=== PATIENT | male | born 1975 | race African-American/Black ===

== ENCOUNTER 2017-02-22 18:47 | Emergency (ER) | payer OTHER ==
--- NOTE | 2017-02-22 18:51 | PDOC ---
Rapid Medical Evaluation Time Seen by Provider: 02/22/17 18:50 Medical Evaluation: Allergies Allergy/AdvReac Type Severity Reaction Status Date / Time No Known Allergies Allergy Verified 05/27/14 15:53 02/22/17 18:51 Pt presents to the ED with complaints of: white penile discharge, no fever, no abd pain On brief exam: vss Pt ordered for: ua, gc/ chlamydia Pt to proceed to the ED Discharge Disposition - Diagnosis Penile discharge - Discharge Dispostion Disposition: HOME Condition at time of disposition: Good - Referrals - Patient Instructions Printed Discharge Instructions: Facts About Sexually Transmitted Infections Additional Instructions: Discharge Instructions: -You were treated for Gonorrhea and chlamydia today. You do not need any more medication -We will call you in 3-4 days if your test results come back positive -Please refrain from sexual intercourse for 1 week -Please inform all sexual partners that you were treated and that they should be tested -Return to the ER with any worsening or concerning symptoms - Post Discharge Activity
[2017-02-22 18:55] VITALS: BP 141/94; PULSE 65; TEMP 98.7; BMI 28.2
[2017-02-22 19:23] LABS: URINE APPEARANCE CLEAR; URINE BILIRUBIN NEGATIVE (NEGATIVE); URINE BLOOD NEGATIVE (NEGATIVE); URINE COLOR YELLOW; URINE GLUCOSE (UA) NEGATIVE (NEGATIVE); URINE KETONE TRACE (NEGATIVE); URINE LEUK ESTERASE TRACE (NEGATIVE); URINE NITRITE NEGATIVE (NEGATIVE); URINE PROTEIN NEGATIVE (NEGATIVE)
[2017-02-22] MEDS ORDERED: AZITHROMYCIN 1 GM PACKET PO ONE (19:30)
[2017-02-22 19:33] LABS: EPI CELLS RARE /HPF (FEW); URINE BACTERIA RARE /hpf (NONE SEEN); URINE MUCUS FEW
--- NOTE | 2017-02-22 19:59 | PDOC ---
History of Present Illness - General Chief Complaint: Penile Drainage Stated Complaint: EVALUATION Time Seen by Provider: 02/22/17 18:50 History Source: Patient Exam Limitations: No Limitations - History of Present Illness Initial Comments: CHIEF COMPLAINT: 42 y/o male c/o penile discharge and slight burning with urination today. HISTORY OF PRESENT ILLNESS: Patient had both oral sex and protected sex last week with a new partner. He woke up with penile discharge today and would like to be treated. He denies f/c, n/v/d, rashes, testicular pain/swelling/redness. Vital signs on arrival are within normal limits. REVIEW OF SYSTEMS: GENERAL/CONSTITUTIONAL: No fever/chills. No weakness. No weight change. GENITOURINARY: +dysuria. +penile discharge. No testicular pain or swelling. MUSCULOSKELETAL: No joint or muscle swelling or pain. No neck or back pain. SKIN: No rash or easy bruising. NEUROLOGIC: No headache, vertigo, loss of consciousness, or loss of sensation. PHYSICAL EXAM: GENERAL: The patient is awake, alert, and fully oriented, in no acute distress. HEAD: Normal with no signs of trauma. TESTICULAR: DEFERRED NEUROLOGICAL: Normal speech, normal gait. CN II-XII grossly intact. SKIN: Warm, dry, normal turgor, no rashes or lesions noted. Past History - Past Medical History Allergies/Adverse Reactions: Allergies Allergy/AdvReac Type Severity Reaction Status Date / Time No Known Allergies Allergy Verified 02/22/17 18:51 Home Medications: Ambulatory Orders No Home Medications 0 dose .ROUTE UTDICT 12/28/11 COPD: No - Suicide/Smoking/Psychosocial Hx Smoking Status: Yes Smoking History: Current some day smoker Years of Tobacco Use: 18 Have you smoked in the past 12 months: No Number of Cigarettes Smoked Daily: 10 Information on smoking cessation initiated: Yes 'Breaking Loose' booklet given: 02/22/17 Hx Alcohol Use: No Drug/Substance Use Hx: No Substance Use Type: None *Physical Exam - Vital Signs Last Vital Signs Temp Pulse Resp BP Pulse Ox 98.7 F 65 18 141/94 100 02/22/17 18:52 02/22/17 18:52 02/22/17 18:52 02/22/17 18:52 02/22/17 18:52 Medical Decision Making - Medical Decision Making A/P: 42 y/o afebrile male with penile discharge today after having sex 1 week ago. Plan is as follows: 1. UA/culture/gc/chlamydia The patient would like to be treated empirically. Treated with IM rocephin and PO azithro. Suggested he refrain from sexual intercourse for 1 week and inform all sexual partners to be tested. Suggested he return to the ER with any worsening or concerning symptoms. The patient verbalizes understanding of all instructions, has no further questions and is awaiting discharge. *DC/Admit/Observation/Transfer Diagnosis at time of Disposition: Penile discharge - Discharge Dispostion Disposition: HOME Condition at time of disposition: Good - Referrals - Patient Instructions Printed Discharge Instructions: Facts About Sexually Transmitted Infections Additional Instructions: Discharge Instructions: -You were treated for Gonorrhea and chlamydia today. You do not need any more medication -We will call you in 3-4 days if your test results come back positive -Please refrain from sexual intercourse for 1 week -Please inform all sexual partners that you were treated and that they should be tested -Return to the ER with any worsening or concerning symptoms - Post Discharge Activity
[2017-02-22] MEDS ORDERED: AZITHROMYCIN 500 MG TABLET ONE (20:03)
== END 2017-02-22 20:24 | disposition home or self-care (01) ==
LOC: JERFT 18:47
DX: R36.9 Urethral discharge, unspecified (principal)
CPT/HCPCS: 36415; 81003; 81015; 87491; 87591; 96372; 99281-25

== ENCOUNTER 2019-03-24 02:50 | Emergency (ER) | payer OTHER ==
--- NOTE | 2019-03-24 04:00 | PDOC ---
History of Present Illness - General Chief Complaint: Penile Drainage Stated Complaint: CLYMYDIA Time Seen by Provider: 03/24/19 03:52 History Source: Patient - History of Present Illness Initial Comments: 03/24/19 05:36 44-year-old male complaining of unprotected sex with partner complaining of dysuria and penile discharge since yesterday. Patient reports that this is similar to when he was exposed to chlamydia. Denies testicular pain, penile swelling, rectal swelling. Past History - Past Medical History Allergies/Adverse Reactions: Allergies Allergy/AdvReac Type Severity Reaction Status Date / Time No Known Allergies Allergy Verified 03/24/19 04:03 Home Medications: Ambulatory Orders No Home Medications 0 dose .ROUTE UTDICT 12/28/11 COPD: No - Psycho Social/Smoking Cessation Hx Smoking Status: Yes Smoking History: Current some day smoker Years of Tobacco Use: 18 Have you smoked in the past 12 months: No Number of Cigarettes Smoked Daily: 10 'Breaking Loose' booklet given: 02/22/17 Hx Alcohol Use: No Drug/Substance Use Hx: No Substance Use Type: None *Physical Exam - Vital Signs 03/24/19 05:37 Last Vital Signs Temp Pulse Resp BP Pulse Ox 97.8 F 75 16 109/55 L 97 03/24/19 02:50 03/24/19 02:50 03/24/19 02:50 03/24/19 02:50 03/24/19 02:50 - Physical Exam General Appearance: Yes: Appropriately Dressed Male Genitalia: positive: normal genitalia, other (no discharge noted from penid at this time). negative: testicular tenderness, testicular mass, epididymus tender, inguinal hernia Extremity: positive: Normal Capillary Refill, Normal Inspection, Normal Range of Motion Integumentary: positive: Normal Color ED Progress Note - Progress Note Progress Note: 03/24/19 05:38 A: STI exposure P: GC UA UCX ceftriaxone azithromycin Discharge - Discharge Information Problems reviewed: Yes Clinical Impression/Diagnosis: STI (sexually transmitted infection) Condition: Fair Disposition: HOME - Follow up/Referral - Patient Discharge Instructions Patient Printed Discharge Instructions: How to Detect and Treat STDs Additional Instructions: It is very important that your partner is treated. Abstain from sex for 1 week. Use protection when you are having sex. Follow-up with your primary doctor soon as possible return to the emergency room for any worsening symptoms - Post Discharge Activity Work/Back to School Note: Back to Work
[2019-03-24] MEDS ORDERED: AZITHROMYCIN 500 MG TABLET PO ONE (04:01)
[2019-03-24 04:10] VITALS: BP 109/55; PULSE 75; TEMP 97.8; BMI 33.7
[2019-03-24] MEDS ORDERED: cefTRIAXone SODIUM 1 GM VIAL ONE (05:19)
[2019-03-24] MEDS ORDERED: AZITHROMYCIN 250 MG TABLET ONE (05:19)
[2019-03-24 05:28] LABS: URINE APPEARANCE CLEAR; URINE BILIRUBIN NEGATIVE (NEGATIVE); URINE COLOR YELLOW; URINE GLUCOSE (UA) NEGATIVE (NEGATIVE); URINE KETONE NEGATIVE (NEGATIVE); URINE LEUK ESTERASE NEGATIVE (NEGATIVE); URINE NITRITE NEGATIVE (NEGATIVE); URINE PROTEIN NEGATIVE (NEGATIVE); URINE UROBILINOGEN 0.2 mg/dL (0.2-1.0)
== END 2019-03-24 06:00 | disposition home or self-care (01) ==
LOC: JER 02:50
DX: A64 Unspecified sexually transmitted disease (principal)
CPT/HCPCS: 36415; 81003; 87086; 87491; 87591; 96372; 99282-25

== ENCOUNTER 2020-05-14 03:13 | Emergency (ER) | payer OTHER ==
[2020-05-14 03:32] VITALS: BP 134/81; PULSE 73; TEMP 98.9; BMI 27.3
[2020-05-14] MEDS ORDERED: AZITHROMYCIN 500 MG TABLET PO ONE (04:03)
[2020-05-14] MEDS ORDERED: LIDOCAINE HCL 1%, 10 MG/ML (20ML VIAL) ONE (04:14)
[2020-05-14] MEDS ORDERED: AZITHROMYCIN 250 MG TABLET ONE (04:14)
[2020-05-14] MEDS ORDERED: cefTRIAXone SODIUM 1 GM VIAL ONE (04:14)
[2020-05-14 06:11] LABS: EPI CELLS 1 /uL (0-25.1); HYALINE CASTS 5 /uL (0-3.1); PH,URINE 5.5 (5.0-8.0); URINE APPEARANCE CLEAR; URINE BACTERIA 147 /uL (0-1359); URINE BILIRUBIN NEGATIVE (NEGATIVE); URINE COLOR YELLOW; URINE GLUCOSE (UA) NEGATIVE (NEGATIVE); URINE KETONE TRACE (NEGATIVE); URINE LEUK ESTERASE 1+ (NEGATIVE); URINE NITRITE NEGATIVE (NEGATIVE); URINE PROTEIN NEGATIVE (NEGATIVE); URINE RBC 26 /uL (0-23.9); URINE WBC 174 /uL (0-25.8)
== END 2020-05-14 06:32 | disposition home or self-care (01) ==
LOC: JER 03:13
PROC: 3E023GC Introduction of Other Therapeutic Substance into Muscle, Percutaneous Approach (ICD-10-PCS; principal; 2020-05-14)
DX: A64 Unspecified sexually transmitted disease (principal)
CPT/HCPCS: 36415; 81003; 87491; 87591; 99284-25